=== PATIENT | male | born 1965 | race Caucasian/White ===

== ENCOUNTER → 2016-09-01 | Outpatient (CLI) | payer MEDICARE ==
[~2016-09-01] MED LIST: GABA300C3 PO; LISI-538 PO
--- NOTE | 2016-09-01 09:28 | REP ---
Clinical: Essential primary hypertension . Comparison: None . Technique: PA and lateral. Findings: The mediastinum and cardiac silhouette are normal. The lung kyle are clear and without acute consolidation, effusion, or pneumothorax. The skeletal structures are intact and normal. Impression: 1. No acute cardiopulmonary process. Signed by Andres Navarro MD 09/01/2016 09:20 A
== END ==
LOC: M LAB 08:49 → M RAD 08:49
PROVIDERS: ATTEND Physician Assistant Medical
DX: I10 Essential (primary) hypertension (principal)

== ENCOUNTER 2016-09-03 14:40 | Emergency (ER) | payer MEDICARE, MEDICAID ==
[2016-09-03 16:27] LABS: BASO # 0.1 K/mm3 (0.0-0.2); BASO % 0.7 % (0.0-1.0); EOS # 0.1 K/mm3 (0.0-0.50); EOS % 1.6 % (0.0-3.0); LARGE UNSTAINED CELL # 0.1 K/mm3 (0.0-0.4); LARGE UNSTAINED CELL % 1.4 % (0.0-4.0); LYMPH # 2.4 K/mm3 (1.5-4.5); LYMPH % 29.8 % (24.0-44.0); MEAN CORPUSCULAR HEMOGLOBIN 33.6 pg (27.0-33.0); MEAN CORPUSCULAR HGB CONC 35.1 g/dl (32.0-36.5); MEAN CORPUSCULAR VOLUME 95.8 fl (80.0-96.0); MONO # 0.4 K/mm3 (0.0-0.8); MONO % 5.7 % (0.0-5.0); NEUTROPHILS # 4.6 K/mm3 (1.8-7.7); NEUTROPHILS % 60.8 % (36.0-66.0); PLATELET COUNT, AUTOMATED 225 k/mm3 (150-450); RED CELL DISTRIBUTION WIDTH 13.2 % (11.5-14.5); WHITE BLOOD COUNT 7.6 K/mm3 (4.0-10.0)
[2016-09-03 16:38] LABS: ANION GAP 8 MEQ/L (8-16); BLOOD UREA NITROGEN 15 MG/DL (7-18); CALCIUM LEVEL 9.5 MG/DL (8.5-10.1); CARBON DIOXIDE LEVEL 27 MEQ/L (21-32); CHLORIDE LEVEL 109 MEQ/L (98-107); GLOMERULAR FILTRATION RATE > 60.0 (>56); GLUCOSE, FASTING 90 MG/DL (70-105); POTASSIUM SERUM 4.1 MEQ/L (3.5-5.1); SODIUM LEVEL 144 MEQ/L (136-145)
[2016-09-03] MEDS ORDERED: ISOVUE-370 76% 100ML VIAL (Q9967) As Ordered ONE (16:49)
[2016-09-03] MEDS ORDERED: KETOROLAC 30 MG/ML VIAL (J1885) As Ordered ONE (17:29)
--- NOTE | 2016-09-03 17:40 | REP ---
CT pulmonary angiogram: With IV contrast. History: Left-sided chest pain. Comparison studies: Chest x-ray from 09/01/2016. Contrast dose: 75 mL of Isovue [address] technique: Helical scanning is acquired and overlapping 1.5 mm and contiguous 3 mm axial images are reformatted. In addition, a 3-D work station is deployed to generate thick slab maximum intensity projection images in sagittal and coronal imaging projections. CT pulmonary angiographic findings: There is good opacification of the pulmonary arterial tree and there is no CT evidence of pulmonary embolism. Maximum intensity projection images show no filling defect or vessel cutoff. The thoracic aorta enhances homogeneously as well without evidence of aneurysm. No hilar or mediastinal mass or adenopathy is seen. No pleural or pericardial effusion is noted. There are a few small bullae and some scarring in each lung apex. There is a small amount of air to the right of the trachea at the thoracic inlet consistent with a tracheal diverticulum which is a normal variant. No other mediastinal abnormal air is seen. There are two intrarenal calculi in the upper pole right kidney measuring 4 and 5 mm in greatest diameter respectively. There is a tiny 2 mm calculus in the upper pole of the left kidney. No hydronephrosis is seen. No adrenal lesion is seen. No bony destructive lesion is appreciated. Impression: 1. No CT evidence of pulmonary embolism. 2. No evidence of infiltrate or atelectasis. No active disease in the chest. 3. Intrarenal nephrolithiasis bilateral kidneys. No hydronephrosis. Signed by Jatin Quinones MD 09/04/2016 08:02 A
--- NOTE | 2016-09-03 17:52 | EDDOCDS ---
Nurse's Notes [facility] Name: Abelardo Olvera Age: 51 yrs Sex: Male : 1965 Arrival Date: 09/03/2016 Time: 14:40 Bed 30 Private MD: Bhavana Philip C Diagnosis: Pleurisy Presentation: 09/03 14:50 Presenting complaint: Patient states: left rib pain since . denies injury. dy Acute neurological deficits are not present. Mechanism of Injury: No Mechanism of Injury. Adult Sepsis Screening: The patient does not have new or worsening altered mentation. Patient's respiratory rate is less than 22. Systolic blood pressure is greater than 100. Patient has a qSOFA score of 0- Negative Sepsis Screen. Suicide/Homicide risk assessment- the patient denies having any suicidal and/or homicidal ideations and does not present with any other emotional, behavioral or mental health complaints. Status: Patient is not a technical service rep or dependent. Transition of care: patient was not received from another setting of care. 14:50 Acuity: KIRAN Level 4 dy 14:50 Method Of Arrival: Walkin/Carried/Asstd dy Triage Assessment: 14:53 General: Appears in no apparent distress. Pain: Location: left lateral posterior chest. dy HIV screening NA for this visit Offered previously. Musculoskeletal: Circulation, motion, and sensation intact. Historical: - Allergies: No known drug Allergies; - Home Meds: 1. gabapentin 300 mg Oral cap 1 cap 3 times per day 2. lisinopril 20 mg Oral tab 1 tab once daily - PMHx: Hypertension; nerve pain; DVT; - PSHx: left leg surgery x 9; Hernia repair- Right inguinal; hydrocele repair; Shoulder Arthroplasty. Right; Cholecystectomy; - Social history: Smoking status: Patient states former smoker of tobacco. No barriers to communication noted, The patient speaks fluent Danish, Speaks appropriately for age. - Family history: No immediate family members are acutely ill. - : The pt / caregiver states he / she is not on anticoagulants. Home medication list is obtained from the patient. - Exposure Risk Screening:: None identified. Screenin:48 Screening information is obtained from the patient. Fall risk: No risks identified. mb9 Assistance ADL's: requires no assistance with activities of daily living. Abuse/DV Screen: The patient / caregiver reports he/she is: not in a situation that causes fear, pain or injury. Nutritional screening: No deficits noted. Advance Directives: There is no active DNR order. home support is adequate. Assessment: 17:01 General: Appears in no apparent distress, Behavior is appropriate for age, cooperative. mb9 Pain: Location: left lateral anterior chest Pain currently is 8 out of 10 on a pain scale. Noted to be agitated, grimacing. Respiratory: Airway is patent Respiratory effort is even, unlabored, Breath sounds are clear bilaterally. 17:48 Reassessment: Patient appears in no apparent distress at this time. Patient states mb9 feeling better. General: Appears in no apparent distress, Behavior is appropriate for age, cooperative. Pain: Location: left lateral anterior chest Pain currently is 6 out of 10 on a pain scale. Respiratory: Airway is patent Respiratory effort is even, unlabored. Vital Signs: 14:42 BP 158 / 80; Pulse 76; Resp 20; Temp 98(O); Pulse Ox 99% ; Weight 89.81 kg (R); Height cmb 5 ft. 10 in. (177.80 cm) (R); Pain 10/10; 17:48 BP 152 / 81; Pulse 66; Resp 17; Temp 97.3(T); Pulse Ox 100% on R/A; mb9 14:42 Body Mass Index 28.41 (89.81 kg, 177.80 cm) [facility] Vitals: 14:42 Log In Time: September 03, 2016 at 14:40. b ED Course: 14:41 Patient visited by Shawna Boone. cmb 14:41 Patient moved to Waiting cmb 14:42 Bhavana Philip is Private Physician. cmb 14:44 Patient moved to Pre RCE cmb 14:51 Triage Initiated dy 15:23 Patient moved to Triage 2 ttb 15:25 [facility]. ar2 15:25 Amado Clifton MD is Attending Physician. ar2 15:26 Patient visited by Jesus Chiu PA-C. ar2 16:04 Patient moved to 30 jf3 16:12 CRP Sent. jf3 16:12 MED Profile Sent. jf3 16:12 CBC with Diff Sent. jf3 16:12 Inserted saline lock: 20 gauge in right antecubital area The patient tolerated the jf3 procedure well. 16:16 Patient visited by Mike Shah PCA. karina 16:16 EKG done. (by ED staff). Reviewed by Jesus collins 17:01 Patient visited by Isabelle Brower. sew 17:20 [facility] Payment Agreement was scanned into [email or web address] and attached to record. gjb 17:30 Bhavana Philip is Referral Physician. ar2 17:48 The patient / caregiver is instructed regarding the plan of care and ED course. Patient mb9 has correct armband on for positive identification. 17:48 Discontinued IV lock intact, bleeding controlled, pressure dressing applied, No mb9 redness/swelling at site. No procedures done that require assistance. Administered Medications: 17:37 CANCELLED (Other Intervention Used): ketorolac 60 mg IM once ar2 17:47 Drug: ketorolac 30 mg [ketorolac 30 mg/mL (1 mL) injection solution (1 mL)] Route: IVP; mb9 Site: right antecubital; Order Results: Lab Order: CBC with Diff; SPEC'M 09/03/16 16:10 Test: WHITE BLOOD COUNT; Value: 7.6; Range: 4.0-10.0; Units: K/mm3; Status: F Test: RED BLOOD COUNT; Value: 4.39; Range: 4.30-6.10; Units: M/mm3; Status: F Test: HEMOGLOBIN; Value: 14.7; Range: 14.0-18.0; Units: g/dl; Status: F Test: HEMATOCRIT; Value: 42.1; Range: 42.0-52.0; Units: %; Status: F Test: MEAN CORPUSCULAR VOLUME; Value: 95.8; Range: 80.0-96.0; Units: fl; Status: F Test: MEAN CORPUSCULAR HEMOGLOBIN; Value: 33.6; Range: 27.0-33.0; Abnormal: Above high normal; Units: pg; Status: F Test: MEAN CORPUSCULAR HGB CONC; Value: 35.1; Range: 32.0-36.5; Units: g/dl; Status: F Test: RED CELL DISTRIBUTION WIDTH; Value: 13.2; Range: 11.5-14.5; Units: %; Status: F Test: PLATELET COUNT, AUTOMATED; Value: 225; Range: 150-450; Units: k/mm3; Status: F Test: NEUTROPHILS %; Value: 60.8; Range: 36.0-66.0; Units: %; Status: F Test: LYMPH %; Value: 29.8; Range: 24.0-44.0; Units: %; Status: F Test: MONO %; Value: 5.7; Range: 0.0-5.0; Abnormal: Above high normal; Units: %; Status: F Test: EOS %; Value: 1.6; Range: 0.0-3.0; Units: %; Status: F Test: BASO %; Value: 0.7; Range: 0.0-1.0; Units: %; Status: F Test: LARGE UNSTAINED CELL %; Value: 1.4; Range: 0.0-4.0; Units: %; Status: F Test: NEUTROPHILS #; Value: 4.6; Range: 1.8-7.7; Units: K/mm3; Status: F Test: LYMPH #; Value: 2.4; Range: 1.5-4.5; Units: K/mm3; Status: F Test: MONO #; Value: 0.4; Range: 0.0-0.8; Units: K/mm3; Status: F Test: EOS #; Value: 0.1; Range: 0.0-0.50; Units: K/mm3; Status: F Test: BASO #; Value: 0.1; Range: 0.0-0.2; Units: K/mm3; Status: F Test: LARGE UNSTAINED CELL #; Value: 0.1; Range: 0.0-0.4; Units: K/mm3; Status: F Lab Order: MED Profile; SPEC'M 09/03/16 16:10 Test: GLUCOSE, FASTING; Value: 90; Range: 70-105; Units: MG/DL; Status: F Test: BLOOD UREA NITROGEN; Value: 15; Range: 7-18; Units: MG/DL; Status: F Test: CREATININE FOR GFR; Value: 1.00; Range: 0.70-1.30; Units: MG/DL; Status: F Test: GLOMERULAR FILTRATION RATE; Value: > 60.0; Range: >56; Status: F Test: SODIUM LEVEL; Value: 144; Range: 136-145; Units: MEQ/L; Status: F Test: POTASSIUM SERUM; Value: 4.1; Range: 3.5-5.1; Units: MEQ/L; Status: F Test: CHLORIDE LEVEL; Value: 109; Range: 98-107; Abnormal: Above high normal; Units: MEQ/L; Status: F Test: CARBON DIOXIDE LEVEL; Value: 27; Range: 21-32; Units: MEQ/L; Status: F Test: ANION GAP; Value: 8; Range: 8-16; Units: MEQ/L; Status: F Test: CALCIUM LEVEL; Value: 9.5; Range: 8.5-10.1; Units: MG/DL; Status: F Test Note: ; Units are mL/min/1.73 m2 Chronic Kidney Disease Staging per NKF: Stage I & II GFR >=60 Normal to Mildly Decreased Stage III GFR 30-59 Moderately Decreased Stage IV GFR 15-29 Severely Decreased Stage V GFR <15 Very Little GFR Left ESRD GFR <15 on FIELD [employer]GANIZER Lab Order: CRP; SPEC'M 09/03/16 16:10 Test: C REACTIVE PROTEIN QUANTITATIV; Value: < 0.30; Range: 0.00-0.30; Units: MG/DL; Status: F Lab Order: TROPONIN; SPEC'M 09/03/16 16:10 Test: TROPONIN I; Value: < 0.02; Range: < 0.10; Units: NG/ML; Status: F Test Note: ; Troponin I Reference Interval for [place] LOCI: 99th Percentile= 0.00-0.045 ng/ml Risk Stratification: <= 0.10 ng/ml Decreased Risk for Adverse Clinical Events. 0.10-1.50 ng/ml Increased Risk for Adverse Clinical Events. Evaluation of additional criterion and/or repeat testing in 2-6 hours is suggested to rule out myocardial damage. >= 1.50 ng/ml Indicative of Myocardial Injury. Outcome: 17:30 Discharge ordered by Provider. ar2 17:48 Discharge Assessment: Patient awake, alert and oriented x 3. No cognitive and/or mb9 functional deficits noted. Patient verbalized understanding of disposition instructions. patient administered narcotics - no. The following High Risk Discharge criteria are identified: None. Discharged to home ambulatory. Condition: good Condition: stable Condition: improved. Discharge instructions given to patient, Instructed on discharge instructions, follow up and referral plans. medication usage, Demonstrated understanding of instructions, medications, Pt was receptive of discharge instructions/ teaching. Prescriptions given X 1. CT Study completed. Property :Personal belongings accompany Pt. 17:52 Patient left the ED. mb9 Signatures: Danny Parks, RN RN Jesus Li PA-C PABuster ar2 Shawna Boone cmb Isabelle Brower Teresa RN RN ttb Mike Shah, LOY JUDICIAL REPORTER Shaka RasmussenRN RN mb9 Arnav Sun,RN RN jf3 Miriam Solomon Corrections: (The following items were deleted from the chart) 14:44 14:42 Pulse 76bpm; Resp 20bpm; Pulse Ox 99%; Temp 98F Oral; 89.81 kg Reported; Height 5 cmb ft. 10 in. Reported; BMI: 28.4; Pain 10/10; cmb MTDD
--- NOTE | 2016-09-03 17:52 | EDDOCDS ---
Physician Documentation [facility] Name: Abelardo Olvera Age: 51 yrs Sex: Male : 1965 Arrival Date: 09/03/2016 Time: 14:40 Bed 30 Private MD: Bhavana Philip C Disposition: 09/03/16 17:30 Discharged to Home/Self Care. Impression: Pleurisy. - Condition is Stable. - Discharge Instructions: Kidney Stones, Pleurisy. - Prescriptions for indomethacin 50 mg Oral Capsule - take 1 capsule by ORAL route 3 times per day with food; 15 capsule. - Medication Reconciliation, Local Pharmacy Hours form. - Follow up: Bhavana Philip; When: 2 - 3 days; Reason: Recheck today's complaints. - Problem is new. - Symptoms have improved. Historical: - Allergies: No known drug Allergies; - Home Meds: 1. gabapentin 300 mg Oral cap 1 cap 3 times per day 2. lisinopril 20 mg Oral tab 1 tab once daily - PMHx: Hypertension; nerve pain; DVT; - PSHx: left leg surgery x 9; Hernia repair- Right inguinal; hydrocele repair; Shoulder Arthroplasty. Right; Cholecystectomy; - Social history: Smoking status: Patient states former smoker of tobacco. No barriers to communication noted, The patient speaks fluent Qatari, Speaks appropriately for age. - Family history: No immediate family members are acutely ill. - : The pt / caregiver states he / she is not on anticoagulants. Home medication list is obtained from the patient. - Exposure Risk Screening:: None identified. Vital Signs: 09/03 14:42 BP 158 / 80; Pulse 76; Resp 20; Temp 98(O); Pulse Ox 99% ; Weight 89.81 kg / 198 lbs cmb (R); Height 5 ft. 10 in. (177.80 cm) (R); Pain 10/10; 17:48 BP 152 / 81; Pulse 66; Resp 17; Temp 97.3(T); Pulse Ox 100% on R/A; mb9 14:42 Body Mass Index 28.41 (89.81 kg, 177.80 cm) cmb MDM: 15:57 IV Saline Lock ordered. ar2 15:58 ECG WITH READING ER PHYS+CARDIAG ordered. EDMS 15:58 CBC with Diff Ordered. EDMS 15:58 MED Profile Ordered. EDMS 15:58 CRP Ordered. EDMS 15:59 CT Chest Angio R/O PE Ordered. EDMS 16:52 CBC with Diff Reviewed. ar2 16:52 MED Profile Reviewed. ar2 16:52 CRP Reviewed. ar2 16:56 TROPONIN Ordered. EDMS 17:11 Financial registration complete. gjb 17:20 [facility] Payment Agreement was scanned into [employer] and attached to record. gjb 17:29 MED Profile Reviewed. ar2 17:29 CRP Reviewed. ar2 17:29 TROPONIN Reviewed. ar2 17:37 ketorolac 30 mg IVP once ordered. ar2 Administered Medications: 17:37 CANCELLED (Other Intervention Used): ketorolac 60 mg IM once ar2 17:47 Drug: ketorolac 30 mg [ketorolac 30 mg/mL (1 mL) injection solution (1 mL)] Route: IVP; mb9 Site: right antecubital; Signatures: Dispatcher [employer] EDNJ Danny Parks RN RN dy Jesus Chiu PAAleydaC PA-C ar2 Shaka Whitehead RN RN mb9 Miriam Solomon The chart was reviewed and I authenticate all verbal orders and agree with the evaluation and treatment provided.Corrections: (The following items were deleted from the chart) 16:56 16:53 TROPONIN+LAB ordered. EDMS EDMS 17:37 17:29 ketorolac 60 mg IM once ordered. ar2 ar2 17:37 17:37 ketorolac 60 mg IM once ordered. ar2 ar2 Attachments: 17:20 [facility] Payment Agreement gjb MTDD
--- NOTE | 2016-09-03 18:13 | ECGEPIP ---
Stationary ECG Study [facility] - ED Test Date: 2016-09-03 Pat Name: SOPHIA NEAL Department: Room: - Gender: M Flamer Sealer: karina : 1965 Requested By: CHRIS GARCIA PA-C. Order Number: [id number] Reading MD: Isabelle Easley Measurements Intervals Danese Rate: 54 P: 13 MN: 160 QRS: 8 QRSD: 118 T: 19 QT: 400 QTc: 382 Interpretive Statements SINUS BRADYCARDIA INCOMPLETE RIGHT BUNDLE BRANCH BLOCK NO PRIOR FOR COMPARISON Electronically Signed On 09-03-2016 18:13:38 EST by Isabelle Easley
--- NOTE | 2016-09-05 18:53 | EDDOCDS ---
Physician Documentation [facility] Name: Abelardo Olvera Age: 51 yrs Sex: Male : 1965 Arrival Date: 09/03/2016 Time: 14:40 Bed 30 Private MD: Bhavana Philip C Disposition: 09/03/16 17:30 Discharged to Home/Self Care. Impression: Pleurisy. - Condition is Stable. - Discharge Instructions: Kidney Stones, Pleurisy. - Prescriptions for indomethacin 50 mg Oral Capsule - take 1 capsule by ORAL route 3 times per day with food; 15 capsule. - Medication Reconciliation, Local Pharmacy Hours form. - Follow up: Bhavana Philip; When: 2 - 3 days; Reason: Recheck today's complaints. - Problem is new. - Symptoms have improved. Historical: - Allergies: No known drug Allergies; - Home Meds: 1. gabapentin 300 mg Oral cap 1 cap 3 times per day 2. lisinopril 20 mg Oral tab 1 tab once daily - PMHx: Hypertension; nerve pain; DVT; - PSHx: left leg surgery x 9; Hernia repair- Right inguinal; hydrocele repair; Shoulder Arthroplasty. Right; Cholecystectomy; - Social history: Smoking status: Patient states former smoker of tobacco. No barriers to communication noted, The patient speaks fluent Belarusian, Speaks appropriately for age. - Family history: No immediate family members are acutely ill. - : The pt / caregiver states he / she is not on anticoagulants. Home medication list is obtained from the patient. - Exposure Risk Screening:: None identified. Vital Signs: 09/03 14:42 BP 158 / 80; Pulse 76; Resp 20; Temp 98(O); Pulse Ox 99% ; Weight 89.81 kg / 198 lbs cmb (R); Height 5 ft. 10 in. (177.80 cm) (R); Pain 10/10; 17:48 BP 152 / 81; Pulse 66; Resp 17; Temp 97.3(T); Pulse Ox 100% on R/A; mb9 14:42 Body Mass Index 28.41 (89.81 kg, 177.80 cm) cmb MDM: 15:57 IV Saline Lock ordered. ar2 15:58 ECG WITH READING ER PHYS+CARDIAG ordered. EDMS 15:58 CBC with Diff Ordered. EDMS 15:58 MED Profile Ordered. EDMS 15:58 CRP Ordered. EDMS 15:59 CT Chest Angio R/O PE Ordered. EDMS 16:52 CBC with Diff Reviewed. ar2 16:52 MED Profile Reviewed. ar2 16:52 CRP Reviewed. ar2 16:56 TROPONIN Ordered. EDMS 17:11 Financial registration complete. [facility] 17:20 [facility] Payment Agreement was scanned into [employer] and attached to record. gjb 17:29 MED Profile Reviewed. ar2 17:29 CRP Reviewed. ar2 17:29 TROPONIN Reviewed. ar2 17:37 ketorolac 30 mg IVP once ordered. ar2 09/04 10:40 T-Sheet-- Draft Copy was scanned into [employer] and attached to record. gb 10:40 ECG/EKG was scanned into [employer] and attached to record. gb 10:41 Radiology Report was scanned into [employer] and attached to record. gb Administered Medications: 09/03 17:37 CANCELLED (Other Intervention Used): ketorolac 60 mg IM once ar2 17:47 Drug: ketorolac 30 mg [ketorolac 30 mg/mL (1 mL) injection solution (1 mL)] Route: IVP; mbDevante Site: right antecubital; Signatures: Dispatcher [employer] EDMS Zamzam Maldonado, Marito Reg gb Danny Parks RN RN dy Robertshaw, Aaron, PA-C PA-C ar2 Shaka Whitehead RN RN mb9 Miriam Solomon The chart was reviewed and I authenticate all verbal orders and agree with the evaluation and treatment provided.Corrections: (The following items were deleted from the chart) 16:56 16:53 TROPONIN+LAB ordered. EDMS EDMS 17:37 17:29 ketorolac 60 mg IM once ordered. ar2 ar2 17:37 17:37 ketorolac 60 mg IM once ordered. ar2 ar2 Attachments: 17:20 [facility] Payment Agreement [facility] 09/04 10:40 T-Sheet-- Draft Copy gb 10:40 ECG/EKG gb Chart Complete MTDD
--- NOTE | 2016-09-05 18:53 | EDDOCDS ---
Physician Documentation [facility] Name: Abelardo Olvera Age: 51 yrs Sex: Male : 1965 Arrival Date: 09/03/2016 Time: 14:40 Bed 30 Private MD: Bhavana Philip C Disposition: 09/03/16 17:30 Discharged to Home/Self Care. Impression: Pleurisy. - Condition is Stable. - Discharge Instructions: Kidney Stones, Pleurisy. - Prescriptions for indomethacin 50 mg Oral Capsule - take 1 capsule by ORAL route 3 times per day with food; 15 capsule. - Medication Reconciliation, Local Pharmacy Hours form. - Follow up: Bhavana Philip; When: 2 - 3 days; Reason: Recheck today's complaints. - Problem is new. - Symptoms have improved. Historical: - Allergies: No known drug Allergies; - Home Meds: 1. gabapentin 300 mg Oral cap 1 cap 3 times per day 2. lisinopril 20 mg Oral tab 1 tab once daily - PMHx: Hypertension; nerve pain; DVT; - PSHx: left leg surgery x 9; Hernia repair- Right inguinal; hydrocele repair; Shoulder Arthroplasty. Right; Cholecystectomy; - Social history: Smoking status: Patient states former smoker of tobacco. No barriers to communication noted, The patient speaks fluent Saudi Arabian, Speaks appropriately for age. - Family history: No immediate family members are acutely ill. - : The pt / caregiver states he / she is not on anticoagulants. Home medication list is obtained from the patient. - Exposure Risk Screening:: None identified. Vital Signs: 09/03 14:42 BP 158 / 80; Pulse 76; Resp 20; Temp 98(O); Pulse Ox 99% ; Weight 89.81 kg / 198 lbs cmb (R); Height 5 ft. 10 in. (177.80 cm) (R); Pain 10/10; 17:48 BP 152 / 81; Pulse 66; Resp 17; Temp 97.3(T); Pulse Ox 100% on R/A; mb9 14:42 Body Mass Index 28.41 (89.81 kg, 177.80 cm) cmb MDM: 15:57 IV Saline Lock ordered. ar2 15:58 ECG WITH READING ER PHYS+CARDIAG ordered. EDMS 15:58 CBC with Diff Ordered. EDMS 15:58 MED Profile Ordered. EDMS 15:58 CRP Ordered. EDMS 15:59 CT Chest Angio R/O PE Ordered. EDMS 16:52 CBC with Diff Reviewed. ar2 16:52 MED Profile Reviewed. ar2 16:52 CRP Reviewed. ar2 16:56 TROPONIN Ordered. EDMS 17:11 Financial registration complete. [facility] 17:20 [facility] Payment Agreement was scanned into [employer] and attached to record. gjb 17:29 MED Profile Reviewed. ar2 17:29 CRP Reviewed. ar2 17:29 TROPONIN Reviewed. ar2 17:37 ketorolac 30 mg IVP once ordered. ar2 09/04 10:40 T-Sheet-- Draft Copy was scanned into [employer] and attached to record. gb 10:40 ECG/EKG was scanned into [employer] and attached to record. gb 10:41 Radiology Report was scanned into [employer] and attached to record. gb Administered Medications: 09/03 17:37 CANCELLED (Other Intervention Used): ketorolac 60 mg IM once ar2 17:47 Drug: ketorolac 30 mg [ketorolac 30 mg/mL (1 mL) injection solution (1 mL)] Route: IVP; mbDevante Site: right antecubital; Signatures: Dispatcher [employer] EDMS Zamzam Maldonado, Marito Reg gb Danny Parks RN RN dy Robertshaw, Aaron, PA-C PA-C ar2 Shaka Whitehead RN RN mb9 Miriam Solomon The chart was reviewed and I authenticate all verbal orders and agree with the evaluation and treatment provided.Corrections: (The following items were deleted from the chart) 16:56 16:53 TROPONIN+LAB ordered. EDMS EDMS 17:37 17:29 ketorolac 60 mg IM once ordered. ar2 ar2 17:37 17:37 ketorolac 60 mg IM once ordered. ar2 ar2 Attachments: 17:20 [facility] Payment Agreement [facility] 09/04 10:40 T-Sheet-- Draft Copy gb 10:40 ECG/EKG gb Chart Complete MTDD
--- NOTE | 2016-09-05 18:53 | EDDOCDS ---
Nurse's Notes [facility] Name: Sophia Neal Age: 51 yrs Sex: Male : 1965 Arrival Date: 09/03/2016 Time: 14:40 Bed 30 Private MD: Bhavana Philip C Diagnosis: Pleurisy Presentation: 09/03 14:50 Presenting complaint: Patient states: left rib pain since . denies injury. dy Acute neurological deficits are not present. Mechanism of Injury: No Mechanism of Injury. Adult Sepsis Screening: The patient does not have new or worsening altered mentation. Patient's respiratory rate is less than 22. Systolic blood pressure is greater than 100. Patient has a qSOFA score of 0- Negative Sepsis Screen. Suicide/Homicide risk assessment- the patient denies having any suicidal and/or homicidal ideations and does not present with any other emotional, behavioral or mental health complaints. Status: Patient is not a coordinator volunteer services or dependent. Transition of care: patient was not received from another setting of care. 14:50 Acuity: KIRAN Level 4 dy 14:50 Method Of Arrival: Walkin/Carried/Asstd dy Triage Assessment: 14:53 General: Appears in no apparent distress. Pain: Location: left lateral posterior chest. dy HIV screening NA for this visit Offered previously. Musculoskeletal: Circulation, motion, and sensation intact. Historical: - Allergies: No known drug Allergies; - Home Meds: 1. gabapentin 300 mg Oral cap 1 cap 3 times per day 2. lisinopril 20 mg Oral tab 1 tab once daily - PMHx: Hypertension; nerve pain; DVT; - PSHx: left leg surgery x 9; Hernia repair- Right inguinal; hydrocele repair; Shoulder Arthroplasty. Right; Cholecystectomy; - Social history: Smoking status: Patient states former smoker of tobacco. No barriers to communication noted, The patient speaks fluent Arabic, Speaks appropriately for age. - Family history: No immediate family members are acutely ill. - : The pt / caregiver states he / she is not on anticoagulants. Home medication list is obtained from the patient. - Exposure Risk Screening:: None identified. Screenin:48 Screening information is obtained from the patient. Fall risk: No risks identified. mb9 Assistance ADL's: requires no assistance with activities of daily living. Abuse/DV Screen: The patient / caregiver reports he/she is: not in a situation that causes fear, pain or injury. Nutritional screening: No deficits noted. Advance Directives: There is no active DNR order. home support is adequate. Assessment: 17:01 General: Appears in no apparent distress, Behavior is appropriate for age, cooperative. mb9 Pain: Location: left lateral anterior chest Pain currently is 8 out of 10 on a pain scale. Noted to be agitated, grimacing. Respiratory: Airway is patent Respiratory effort is even, unlabored, Breath sounds are clear bilaterally. 17:48 Reassessment: Patient appears in no apparent distress at this time. Patient states mb9 feeling better. General: Appears in no apparent distress, Behavior is appropriate for age, cooperative. Pain: Location: left lateral anterior chest Pain currently is 6 out of 10 on a pain scale. Respiratory: Airway is patent Respiratory effort is even, unlabored. Vital Signs: 14:42 BP 158 / 80; Pulse 76; Resp 20; Temp 98(O); Pulse Ox 99% ; Weight 89.81 kg (R); Height cmb 5 ft. 10 in. (177.80 cm) (R); Pain 10/10; 17:48 BP 152 / 81; Pulse 66; Resp 17; Temp 97.3(T); Pulse Ox 100% on R/A; mb9 14:42 Body Mass Index 28.41 (89.81 kg, 177.80 cm) [facility] Vitals: 14:42 Log In Time: September 03, 2016 at 14:40. b ED Course: 14:41 Patient visited by Shawna Boone. cmb 14:41 Patient moved to Waiting cmb 14:42 Bhavana Philip is Private Physician. cmb 14:44 Patient moved to Pre RCE cmb 14:51 Triage Initiated dy 15:23 Patient moved to Triage 2 ttb 15:25 [facility]. ar2 15:25 Amado Clifton MD is Attending Physician. ar2 15:26 Patient visited by Chris Garcia PA-C. ar2 16:04 Patient moved to 30 jf3 16:12 CRP Sent. jf3 16:12 MED Profile Sent. jf3 16:12 CBC with Diff Sent. jf3 16:12 Inserted saline lock: 20 gauge in right antecubital area The patient tolerated the jf3 procedure well. 16:16 Patient visited by Mike Shah PCA. karina 16:16 EKG done. (by ED staff). Reviewed by Chris collins 17:01 Patient visited by Isabelle Brower. sew 17:20 [facility] Payment Agreement was scanned into [employer] and attached to record. gjb 17:30 Bhavana Philip is Referral Physician. ar2 17:48 The patient / caregiver is instructed regarding the plan of care and ED course. Patient mb9 has correct armband on for positive identification. 17:48 Discontinued IV lock intact, bleeding controlled, pressure dressing applied, No mb9 redness/swelling at site. No procedures done that require assistance. 18:14 CT Chest Angio R/O PE Returned. EDMS 19:13 EKG-ADULT Returned. EDMS 09/04 10:40 T-Sheet-- Draft Copy was scanned into [employer] and attached to record. gb 10:40 ECG/EKG was scanned into [employer] and attached to record. gb 10:41 Radiology Report was scanned into [employer] and attached to record. gb Administered Medications: 09/03 17:37 CANCELLED (Other Intervention Used): ketorolac 60 mg IM once ar2 17:47 Drug: ketorolac 30 mg [ketorolac 30 mg/mL (1 mL) injection solution (1 mL)] Route: IVP; mb9 Site: right antecubital; Order Results: Lab Order: CBC with Diff; SPEC'M 09/03/16 16:10 Test: WHITE BLOOD COUNT; Value: 7.6; Range: 4.0-10.0; Units: K/mm3; Status: F Test: RED BLOOD COUNT; Value: 4.39; Range: 4.30-6.10; Units: M/mm3; Status: F Test: HEMOGLOBIN; Value: 14.7; Range: 14.0-18.0; Units: g/dl; Status: F Test: HEMATOCRIT; Value: 42.1; Range: 42.0-52.0; Units: %; Status: F Test: MEAN CORPUSCULAR VOLUME; Value: 95.8; Range: 80.0-96.0; Units: fl; Status: F Test: MEAN CORPUSCULAR HEMOGLOBIN; Value: 33.6; Range: 27.0-33.0; Abnormal: Above high normal; Units: pg; Status: F Test: MEAN CORPUSCULAR HGB CONC; Value: 35.1; Range: 32.0-36.5; Units: g/dl; Status: F Test: RED CELL DISTRIBUTION WIDTH; Value: 13.2; Range: 11.5-14.5; Units: %; Status: F Test: PLATELET COUNT, AUTOMATED; Value: 225; Range: 150-450; Units: k/mm3; Status: F Test: NEUTROPHILS %; Value: 60.8; Range: 36.0-66.0; Units: %; Status: F Test: LYMPH %; Value: 29.8; Range: 24.0-44.0; Units: %; Status: F Test: MONO %; Value: 5.7; Range: 0.0-5.0; Abnormal: Above high normal; Units: %; Status: F Test: EOS %; Value: 1.6; Range: 0.0-3.0; Units: %; Status: F Test: BASO %; Value: 0.7; Range: 0.0-1.0; Units: %; Status: F Test: LARGE UNSTAINED CELL %; Value: 1.4; Range: 0.0-4.0; Units: %; Status: F Test: NEUTROPHILS #; Value: 4.6; Range: 1.8-7.7; Units: K/mm3; Status: F Test: LYMPH #; Value: 2.4; Range: 1.5-4.5; Units: K/mm3; Status: F Test: MONO #; Value: 0.4; Range: 0.0-0.8; Units: K/mm3; Status: F Test: EOS #; Value: 0.1; Range: 0.0-0.50; Units: K/mm3; Status: F Test: BASO #; Value: 0.1; Range: 0.0-0.2; Units: K/mm3; Status: F Test: LARGE UNSTAINED CELL #; Value: 0.1; Range: 0.0-0.4; Units: K/mm3; Status: F Lab Order: MED Profile; SPEC'M 09/03/16 16:10 Test: GLUCOSE, FASTING; Value: 90; Range: 70-105; Units: MG/DL; Status: F Test: BLOOD UREA NITROGEN; Value: 15; Range: 7-18; Units: MG/DL; Status: F Test: CREATININE FOR GFR; Value: 1.00; Range: 0.70-1.30; Units: MG/DL; Status: F Test: GLOMERULAR FILTRATION RATE; Value: > 60.0; Range: >56; Status: F Test: SODIUM LEVEL; Value: 144; Range: 136-145; Units: MEQ/L; Status: F Test: POTASSIUM SERUM; Value: 4.1; Range: 3.5-5.1; Units: MEQ/L; Status: F Test: CHLORIDE LEVEL; Value: 109; Range: 98-107; Abnormal: Above high normal; Units: MEQ/L; Status: F Test: CARBON DIOXIDE LEVEL; Value: 27; Range: 21-32; Units: MEQ/L; Status: F Test: ANION GAP; Value: 8; Range: 8-16; Units: MEQ/L; Status: F Test: CALCIUM LEVEL; Value: 9.5; Range: 8.5-10.1; Units: MG/DL; Status: F Test Note: ; Units are mL/min/1.73 m2 Chronic Kidney Disease Staging per NKF: Stage I & II GFR >=60 Normal to Mildly Decreased Stage III GFR 30-59 Moderately Decreased Stage IV GFR 15-29 Severely Decreased Stage V GFR <15 Very Little GFR Left ESRD GFR <15 on ANTENNA DESIGN ENGINEER Lab Order: CRP; SPEC'M 09/03/16 16:10 Test: C REACTIVE PROTEIN QUANTITATIV; Value: < 0.30; Range: 0.00-0.30; Units: MG/DL; Status: F Lab Order: TROPONIN; SPEC'M 09/03/16 16:10 Test: TROPONIN I; Value: < 0.02; Range: < 0.10; Units: NG/ML; Status: F Test Note: ; Troponin I Reference Interval for [employer] LOCI: 99th Percentile= 0.00-0.045 ng/ml Risk Stratification: <= 0.10 ng/ml Decreased Risk for Adverse Clinical Events. 0.10-1.50 ng/ml Increased Risk for Adverse Clinical Events. Evaluation of additional criterion and/or repeat testing in 2-6 hours is suggested to rule out myocardial damage. >= 1.50 ng/ml Indicative of Myocardial Injury. 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; : 1965 Requested By: CHRIS GARCIA PA-C.; Order Number: [id number] Reading MD: Isabelle Easley; Measurements; Intervals [place]; Rate: 54 P: 13; IA: 160 QRS: 8; QRSD: 118 T: 19; QT: 400; QTc: 382; Interpretive Statements; SINUS BRADYCARDIA; INCOMPLETE RIGHT BUNDLE BRANCH BLOCK; NO PRIOR FOR COMPARISON; Electronically Signed On 09-03-2016 18:13:38 EST by Isabelle Easley; Radiology Order: CT Chest Angio R/O PE Test: CT Chest Angio R/O PE REASON FOR EXAMINATION: left sided chest pain; CT pulmonary angiogram: With IV contrast.; ; History: Left-sided chest pain.; ; Comparison studies: Chest x-ray from 09/01/2016.; ; Contrast dose: 75 mL of Isovue 370 are administered intravenously.; ; CT technique: Helical scanning is acquired and overlapping 1.5 mm and contiguous; 3 mm axial images are reformatted. In addition, a 3-D work station is deployed; to generate thick slab maximum intensity projection images in sagittal and; coronal imaging projections.; ; CT pulmonary angiographic findings: There is good opacification of the pulmonary; arterial tree and there is no CT evidence of pulmonary embolism. Maximum; intensity projection images show no filling defect or vessel cutoff. The; thoracic aorta enhances homogeneously as well without evidence of aneurysm. No; hilar or mediastinal mass or adenopathy is seen. No pleural or pericardial; effusion is noted. There are a few small bullae and some scarring in each lung; apex. There is a small amount of air to the right of the trachea at the thoracic; inlet consistent with a tracheal diverticulum which is a normal variant. No; other mediastinal abnormal air is seen. There are two intrarenal calculi in the; upper pole right kidney measuring 4 and 5 mm in greatest diameter respectively.; There is a tiny 2 mm calculus in the upper pole of the left kidney. No; hydronephrosis is seen. No adrenal lesion is seen. No bony destructive lesion; is appreciated.; ; Impression:; ; 1. No CT evidence of pulmonary embolism.; ; 2. No evidence of infiltrate or atelectasis. No active disease in the chest.; ; 3. Intrarenal nephrolithiasis bilateral kidneys. No hydronephrosis.; ; ; ; ; Signed by; Jatin Quinones MD 09/04/2016 08:02 A; Outcome: 17:30 Discharge ordered by Provider. ar2 17:48 Discharge Assessment: Patient awake, alert and oriented x 3. No cognitive and/or mb9 functional deficits noted. Patient verbalized understanding of disposition instructions. patient administered narcotics - no. The following High Risk Discharge criteria are identified: None. Discharged to home ambulatory. Condition: good Condition: stable Condition: improved. Discharge instructions given to patient, Instructed on discharge instructions, follow up and referral plans. medication usage, Demonstrated understanding of instructions, medications, Pt was receptive of discharge instructions/ teaching. Prescriptions given X 1. CT Study completed. Property :Personal belongings accompany Pt. 17:52 Patient left the ED. mb9 Signatures: Dispatcher [employer] EDMS Zamzam Maldonado, Danny Gómez, RN Chris Altamirano, RICARDO PAAleydaC ar2 Shawna Boone Sarah sew Conner, Teresa, RN RN ttb Mike Shah, LOY NUT SHELLER d Shaka Whitehead,RN RN mb9 Arnav Sun,NATO RN jf3 Miriam Solomon Corrections: (The following items were deleted from the chart) 14:44 14:42 Pulse 76bpm; Resp 20bpm; Pulse Ox 99%; Temp 98F Oral; 89.81 kg Reported; Height 5 cmb ft. 10 in. Reported; BMI: 28.4; Pain 10/10; cmb Chart Complete MTDD
== END 2016-09-03 17:52 | disposition home or self-care (01) ==
LOC: M ED 14:40
DX: R09.1 Pleurisy (principal); N20.0 Calculus of kidney; I10 Essential (primary) hypertension; G52.9 Cranial nerve disorder, unspecified; Z96.611 Presence of right artificial shoulder joint; Z87.891 Personal history of nicotine dependence; Z79.899 Other long term (current) drug therapy
CPT/HCPCS: 71275; 80048; 84484; 85025; 86140; 93005; 96374; 99284; J1885; Q9967

== ENCOUNTER → 2016-09-08 | Outpatient (CLI) | payer MEDICARE ==
[~2016-09-08] VITALS: Ht 177.8 cm; Wt 89.8 kg
[~2016-09-08] MED LIST changes: +LIDOCAINE 2% INJ 100 MG/5 ML SDV (FOR ANES.) As Ordered ONE; +NS 1,000 ML IV SCH; +PROPOFOL 200 MG/20 ML VIAL As Ordered ONE
--- NOTE | 2016-09-08 14:31 | ROOR ---
Patient Name: Abelardo Olvera Procedure Date: 09/08/2016 2:15 PM Date of : 1965 Age: 51 [place] [facility] [place] Note Status: Finalized Procedure: Upper GI endoscopy Indications: Abnormal CT of the GI tract Providers: Danny ADAMS MD Referring MD: RONDA QUEVEDO Requesting Provider: Medicines: Monitored Anesthesia Care Complications: No immediate complications. Procedure: Pre-Anesthesia Assessment: - The heart rate, respiratory rate, oxygen saturations, blood pressure, adequacy of pulmonary ventilation, and response to care were monitored throughout the procedure. The Endoscope was introduced through the mouth, and advanced to the second part of duodenum. The upper GI endoscopy was accomplished without difficulty. The patient tolerated the procedure well. Findings: The examined esophagus was normal. Small Hiatal Hernia. The entire examined stomach was normal. The examined duodenum was normal. Impression: - Normal esophagus. - Small Hiatal Hernia. - Normal stomach. (I see a single prominent polypoid fold herniating up into the small hernia. this is of no significance) - Normal examined duodenum. - No specimens collected. Recommendation: - Observe patient's clinical course. Danny Adams MD Danny ADAMS MD 09/08/2016 2:31:10 PM This report has been signed electronically. Number of Addenda: 0 Note Initiated On: 09/08/2016 2:15 PM Estimated Blood Loss: Estimated blood loss: none.
--- NOTE | 2016-09-08 14:46 | ROOR ---
Patient Name: Abelardo Olvera Procedure Date: 09/08/2016 2:16 PM Date of : 1965 Age: 51 Room: [facility] Gender: Male Note Status: Finalized Procedure: Colonoscopy Indications: Screening for colorectal malignant neoplasm Providers: Danny ADAMS MD Referring MD: RONDA QUEVEDO Requesting Provider: Medicines: Monitored Anesthesia Care Complications: No immediate complications. Procedure: Pre-Anesthesia Assessment: - The heart rate, respiratory rate, oxygen saturations, blood pressure, adequacy of pulmonary ventilation, and response to care were monitored throughout the procedure. The Colonoscope was introduced through the anus and advanced to the terminal ileum, with identification of the appendiceal orifice and IC valve. The colonoscopy was performed without difficulty. The patient tolerated the procedure well. The quality of the bowel preparation was good. Findings: The perianal and digital rectal examinations were normal. (Exam: Complete, Prep: Good or Excellent.) Mildly erythematous mucosa was found in the entire colon likely related to colon prep. The entire examined colon appeared normal on direct and retroflexion views. Impression: - (Exam: Complete, Prep: Good or Excellent.) - The entire examined colon is normal on direct and retroflexion views. - No specimens collected. Recommendation: - Repeat colonoscopy in 10 years for screening purposes. Danny Adams MD Danny ADAMS MD 09/08/2016 2:46:03 PM This report has been signed electronically. Number of Addenda: 0 Note Initiated On: 09/08/2016 2:16 PM Estimated Blood Loss: Estimated blood loss: none.
[2016-09-08 15:16] VITALS: BP 122/68
== END | disposition home or self-care (01) ==
LOC: M OPP 13:15
PROVIDERS: ATTEND Internal Medicine Gastroenterology
DX: Z12.11 Encounter for screening for malignant neoplasm of colon (principal); R93.3 Abnormal findings on diagnostic imaging of other parts of digestive tract; K44.9 Diaphragmatic hernia without obstruction or gangrene; I10 Essential (primary) hypertension; M51.9 Unspecified thoracic, thoracolumbar and lumbosacral intervertebral disc disorder; F41.9 Anxiety disorder, unspecified; Z86.718 Personal history of other venous thrombosis and embolism; Z87.442 Personal history of urinary calculi; Z87.891 Personal history of nicotine dependence; Z79.899 Other long term (current) drug therapy
CPT/HCPCS: 43235; G0121

== ENCOUNTER → 2016-09-25 | Outpatient (CLI) | payer MEDICARE, MEDICAID ==
[~2016-09-25] MED LIST changes: -LIDOCAINE 2% INJ 100 MG/5 ML SDV (FOR ANES.) As Ordered ONE; -NS 1,000 ML IV SCH; -PROPOFOL 200 MG/20 ML VIAL As Ordered ONE
--- NOTE | 2016-09-25 09:57 | REP ---
CT of the chest without IV contrast: Comparison is 09/03/2016. There are no acute infiltrates. There are no effusions. There are no masses. No bullae are identified. Evidence for bronchiectasis is equivocal. This should be correlated with symptomatology. There is no mediastinal or axillary lymph node enlargement. In the absence of IV contrast the study is insensitive for hilar lymph node enlargement. I suspect there are bone cysts in the humeral heads bilaterally. The unenhanced thoracic aorta is unremarkable. Cardiac size normal. The visualized upper abdominal contents reveal bilateral nonobstructive renal calculi. Are otherwise unremarkable. Impression: There is equivocal evidence for bronchiectasis. This should be correlated with clinical findings. No bullae are identified except for a few small bullae in the lung apices bilaterally. This is unchanged. Bilateral nonobstructive renal calculi. Otherwise, negative CT study of the chest. Signed by Aung Sanchez MD 09/25/2016 09:49 A
== END ==
LOC: M RAD 07:37
PROVIDERS: ATTEND Physician Assistant Medical
DX: J44.9 Chronic obstructive pulmonary disease, unspecified (principal); N20.0 Calculus of kidney

== ENCOUNTER 2021-04-22 10:07 | Emergency (ER) | payer MEDICARE, MEDICAID ==
[~2021-04-22] VITALS: Ht 177.8 cm; Wt 75.0 kg
[~2021-04-22 10:07] MED LIST changes: +GABA-282 PO; -GABA300C3 PO; -LISI-538 PO; +LISI20TA33 PO
--- NOTE | 2021-04-22 10:55 | REP ---
INDICATION: CHEST PAIN COMPARISON: 09/01/2016 TECHNIQUE: Portable AP view of the chest FINDINGS: The mediastinum and cardiac silhouette are stable and within normal limits for portable technique. The lung kyle are clear without acute consolidation, effusion, or pneumothorax. Skeletal structures are intact. IMPRESSION: No acute cardiopulmonary process appreciated. <Electronically signed by Andres Navarro > 04/22/21 [id number]
[2021-04-22 11:12] LABS: BASO % 0.5 % (0.0-1.0); EOS # 0.2 10^3/uL (0.0-0.5); EOS % 2.3 % (0.0-3.0); HEMATOCRIT 43.3 % (42.0-52.0); LYMPH # 1.7 10^3/uL (1.5-5.0); LYMPH % 25.7 % (24.0-44.0); MEAN CORPUSCULAR HEMOGLOBIN 34.6 pg (27.0-33.0); MEAN CORPUSCULAR HGB CONC 34.6 g/dl (32.0-36.5); MEAN CORPUSCULAR VOLUME 99.8 fl (80.0-96.0); MONO # 0.5 10^3/uL (0.0-0.8); NEUTROPHILS # 4.2 10^3/uL (1.5-8.5); NEUTROPHILS % 63.2 % (36.0-66.0); PLATELET COUNT, AUTOMATED 247 10^3/uL (150-450); RED BLOOD COUNT 4.34 10^6/uL (4.30-6.10); WHITE BLOOD COUNT 6.7 10^3/uL (4.0-10.0)
[2021-04-22 11:50] LABS: ALBUMIN 3.6 GM/DL (3.2-5.2); ALT/SGPT 22 U/L (12-78); BILIRUBIN,DIRECT < 0.1 MG/DL (0.0-0.2); BILIRUBIN,TOTAL 0.2 MG/DL (0.2-1.0); BLOOD UREA NITROGEN 33 MG/DL (7-18); CALCIUM LEVEL 9.2 MG/DL (8.5-10.1); CARBON DIOXIDE LEVEL 26 MEQ/L (21-32); CHLORIDE LEVEL 113 MEQ/L (98-107); CREATININE FOR GFR 1.59 MG/DL (0.70-1.30); GLOMERULAR FILTRATION RATE 48.2 (>56); GLUCOSE, FASTING 92 MG/DL (70-100); LIPASE 185 U/L (73-393); NT-PRO BNP 69 PG/ML (<125); POTASSIUM SERUM 4.9 MEQ/L (3.5-5.1); SODIUM LEVEL 144 MEQ/L (136-145)
--- NOTE | 2021-04-22 11:59 | REP ---
INDICATION: pneumomediastinum by ct yesterday per krystin. COMPARISON: 09/25/2016. TECHNIQUE: CT chest performed without the use of intravenous contrast. Sagittal and coronal reconstruction images are performed. FINDINGS: Lungs: There is no acute infiltrate. There is scattered fibrotic change in the upper lobes which appears stable. There is biapical pleural thickening and bullous change. A cluster of blebs with intervening pleural thickening in the right medial apex is unchanged. Mediastinum: No gross adenopathy. There is no pneumomediastinum. Elizabeth: No gross adenopathy. Axilla: No gross adenopathy. Pleura: No effusion. Heart: Not enlarged. Thoracic aorta: No aneurysm. Visualized osseous structures: There are diffuse degenerative changes of the spine. IMPRESSION: Stable chronic findings. No acute infiltrate or pneumomediastinum. <Electronically signed by Aung Downs > 04/22/21 [id number]
--- NOTE | 2021-04-22 12:07 | REP ---
INDICATION: pneumomediastinum by ct yesterday per krystin COMPARISON: 08/13/2016. TECHNIQUE: CT Scan of the abdomen and pelvis was performed without intravenous contrast. Sagittal and coronal reconstruction images performed. FINDINGS: Lung bases: Unremarkable. Liver: Grossly unremarkable. Gallbladder: Prior cholecystectomy. Spleen: Grossly unremarkable. Adrenals: Normal. Pancreas: Grossly unremarkable.. Kidneys: There is no evidence of hydronephrosis bilaterally. There are few subcentimeter right intrarenal calculi, and a single punctate left intrarenal calculus. There is a cystic structure of the medial left kidney 1.5 cm in diameter. Small and large bowel: Grossly unremarkable. Free fluid: None. Abdominal aorta: No aneurysm. Adenopathy: None. Appendix: Not inflamed. Osseous structures: There are degenerative changes of the spine. Pelvis: No mass. No bladder calculus seen. IMPRESSION: Intrarenal calculi bilaterally. No hydronephrosis. No acute pathology. <Electronically signed by Aung Downs > 04/22/21 [id number]
[2021-04-22 12:15] VITALS: BP 130/60
[2021-04-22 12:18] LABS: INR 0.9; PARTIAL THROMBOPLASTIN TIME 32.7 SECONDS (25.9-37.0); PROTHROMBIN TIME 12.6 SECONDS (12.7-14.5)
--- NOTE | 2021-04-23 15:43 | ECGEPIP ---
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
== END 2021-04-22 12:48 | disposition home or self-care (01) ==
LOC: M ED 10:07
DX: J98.2 Interstitial emphysema (principal); I10 Essential (primary) hypertension; Z79.899 Other long term (current) drug therapy; F17.210 Nicotine dependence, cigarettes, uncomplicated